=== PATIENT | female | born 1960 | race Native Hawaiian/Other Pacific Islander ===

== ENCOUNTER 2016-05-06 09:33 | Outpatient (CLI) | payer BC ==
[2016-05-06 10:15] LABS: PLATELET COUNT 254 K/uL (152-353)
[2016-05-06 11:19] LABS: POTASSIUM 4.1 mmol/L (3.6-5.2); SODIUM 139 mmol/L (136-145)
== END 2016-05-06 19:44 | disposition home or self-care (01) ==
LOC: LABW 09:33
PROVIDERS: Nurse Practitioner
DX: Z00.00 Encounter for general adult medical examination without abnormal findings (principal); E03.8 Other specified hypothyroidism; E53.8 Deficiency of other specified B group vitamins; Z79.899 Other long term (current) drug therapy; Z51.81 Encounter for therapeutic drug level monitoring
CPT/HCPCS: 36415; 80053; 80061; 82607; 84443; 85027

== ENCOUNTER 2017-12-15 10:53 | Outpatient (CLI) | payer BC ==
[2017-12-15 11:21] LABS: PLATELET COUNT 235 K/uL (152-353)
[2017-12-15 11:36] LABS: PARTIAL THROMBOPLASTIN TIME 30.5 SECONDS (24.5-33.6)
== END 2017-12-15 22:23 | disposition home or self-care (01) ==
LOC: LABW 10:53
PROVIDERS: Student in an Organized Health Care Education/Training Program
DX: R58 Hemorrhage, not elsewhere classified (principal); Z51.81 Encounter for therapeutic drug level monitoring; R22.41 Localized swelling, mass and lump, right lower limb
CPT/HCPCS: 36415; 85027; 85610; 85730

== ENCOUNTER 2022-02-17 09:59 | Outpatient (CLI) | payer BC | END 2022-02-17 19:59 | disposition home or self-care (01) | LOC: RAD 09:59 | PROVIDERS: ATTEND Specialist | DX: M81.0 Age-related osteoporosis without current pathological fracture (principal) ==